=== PATIENT | male | born 1980 | race Caucasian/White ===

== ENCOUNTER 2021-12-20 11:37 | Emergency (ER) | payer OTHER, SELFPAY ==
--- NOTE | ~2021-12-20 | XR_ITS ---
EXAMINATION: XR HAND, LEFT CLINICAL INFORMATION: Injury to fourth digit COMPARISON: None TECHNIQUE: PA, lateral, and oblique views of the left hand. FINDINGS: The bones and soft tissues are normal. No fracture. Alignment is anatomic. Joint spaces are maintained. No erosions or soft tissue calcifications. XR/XR hand LT 2V IMPRESSION: Normal left hand.
[2021-12-20 12:01] VITALS: BP 115/76; PULSE 93; RESP 18; TEMP 37.1; O2SAT 97; BMI 22.4
--- NOTE | 2021-12-20 12:31 | ED_ITS ---
HPI - General Adult General Chief complaint: Extremity Problem Stated complaint: crushed knuckle Time Seen by Provider: 12/20/21 12:30 Source: patient Mode of arrival: ambulatory Limitations: no limitations History of Present Illness HPI narrative: Patient is a 41 year old male presenting to the emergency department today with left ring finger pain after a crush injury. 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 Patient states that he does not remember his last tetanus shot. Patient denies any dizziness, lightheadedness, abdominal pain, nausea, vomiting, fever, chills, blurry vision, double vision, loss of vision, chest pain, difficulty breathing, shortness of breath, back pain, night sweats, pain with urination, increased urinary frequency, increased urinary urgency, blood in his urine or stool, syncope or a near syncopal episode, bowel incontinence, bladder incontinence, bowel retention, bladder retention, or any other complaints at this time. Onset (ago): minute(s) Location: left and upper extremity (ring finger) Radiation: non-radiation Severity: mild Severity scale (1-10): 3 Quality: dull Pain Consistency: constant Relieving factors: none Exacerbating factors: none Associated symptoms: denies other symptoms Treatments prior to arrival: none Related Data Previous Rx's Medication Instructions Recorded cephalexin 500 mg capsule 500 mg PO Q6H 7 days #28 caps 12/20/21 Allergies Allergy/AdvReac Type Severity Reaction Status Date / Time No Known Allergies Allergy Verified 12/20/21 12:30 Review of Systems Constitutional: Constitutional: Reports no additional constitutional complaints, Denies chills, Denies fever(s) and Denies night sweats Eyes: Eyes: Reports no additional eye complaints, Denies blurry vision, Denies change in vision, Denies diplopia, Denies eye discharge, Denies loss of vision and Denies eye pain ENT: Denies dizziness Cardiovascular: Cardiovascular: Reports no additional cardiovascular complaints, Denies chest pain, Denies lightheadedness, Denies Loss of Consciousness and Denies dyspnea Respiratory: Respiratory: Reports no additional respiratory complaints and Denies dyspnea Gastrointestinal: Gastrointestinal: Reports no additional gastrointestinal complaints, Denies abdominal pain, Denies melena, Denies hematochezia, Denies change in bowel habits and Denies change in stool character Genitourinary: Genitourinary: Reports no additional male genitourinary complaints, Denies hematuria, Denies oliguria, Denies difficulty urinating, Denies dysuria, Denies urinary frequency, Denies urinary hesitancy, Denies urinary incontinence and Denies urinary urgency Musculoskeletal: Musculoskeletal: Reports no additional musculoskeletal c omplaints, Denies numbness and Denies tingling Integumentary/Breasts: Comments: avulsion of skin on the left ring finger Neurologic: Denies dizziness, Denies loss of vision, Denies numbness and Denies tingling Psychiatric: Psychiatric: Reports no additional psychiatric complaints Endocrine: Endocrine: Reports no additional endocrine complaints Hematologic/Lymphatic: Hematologic/Lymphatic: Reports no additional hematologic/lymphatic complaints Allergic/Immunologic: Allergic/Immunologic: Reports no additional allergic/immunologic complaints [facility] Past Medical History Attestation statement: The following information was validated with the patient. Source: old records reviewed Social History Social History Advance Directives: No Advance Directives Information Provided: No Physical Exam ED Vital Signs: Vital Signs - 24 hr 12/20/21 12:01 Temperature 98.8 F Pulse Rate 93 Respiratory Rate 18 Blood Pressure 115/76 Pulse Oximetry 97 Oxygen Delivery Method Room Air BMI result Body Mass Index 22.4 Const General: cooperative, no acute distress, alert and awake Nutritional Appearance: well nourished Orientation/consciousness: patient oriented x3 Limitations: no limitations HENMT Head: Yes normal to inspection and Yes atraumatic Ears: hearing grossly normal bilaterally and external ears normal General nose exam: Normal external nose present, no nasal discharge noted and no epistaxis Face and sinus: Yes normal facial exam, No abrasion and No laceration Mouth: Normal oral and palatal mucosa present, no drooling and no muffled voice Eyes General: appearance normal, both eyes and all related structures Periorbital: periorbital findings normal Eyelids: Yes eyelids normal Conjunctivae: conjunctivae normal Pupils: Equal, round and reactive pupils present EOM: EOMs intact bilaterally Neck Neck: Yes normal visual inspection, Yes full ROM and Yes no lymphadenopathy Chest Chest palpation & inspection: normal inspection of the chest Resp Effort & Inspection: normal respiratory effort and able to speak in complete sentences Auscultation: clear to auscultation bilaterally GI Inspection: Yes normal to inspection Skin Other: small area of avulsion skin to the dorsal aspect of the left ring finger, no active bleeding Neuro General: patient oriented x3 and moves all extremities Cranial nerves: Yes Equal, round and reactive pupils present Cognition (Neuro): normal cognition Motor exam (neuro): 5/5 motor strength present throughout Sensory Exam: Normal double simultaneous stimulation for sensation Coordination: [id number] test normal Extrem General: Yes full ROM and Yes capillary refill normal Psych Appearance: grossly normal Mental Status: mental status grossly normal Affect: normal affect Attitude: cooperative Thought process: Normal thought process present Thought content: Normal thought content present Insight: Good insight present (Psych) Medical Decision Making MDM Narrative Medical decision making narrative: Patient is a 41 year old male presenting to the emergency department today with a left ring finger injury. Patient's physical exam showed a small skin avulsion to the dorsal aspect of the left ring finger with no active bleeding.Patient's left hand x-ray showed no acute process. I explained my physical exam findings as well as all test results to the patient. I answered all questions asked by the patient. Patient was brought up to date on tetanus. I stressed the importance of the patient taking his medication as prescribed. I stressed the importance of the patient following up with his primary care provider. I stressed the importance of the patient returning to the emergency department immediately if his symptoms were to worsen or if he were to develop any dizziness, shortness of breath, difficulty breathing, chest pain, blurry vision, loss of vision, nausea, vomiting, abdominal pain, fever, chills, back pain, or any other complaints. Patient verbalized agreement and understanding with this treatment plan and discharge. Differential Diagnosis Differential Diagnosis: skin avulsion, crush injury Medical Records Medical records reviewed: Yes I reviewed the patient's medical records. Imaging Data Left hand x-ray: Attestation: I personally reviewed and interpreted this imaging study as follows: My impression: No acute process. Radiologist's impression: EXAMINATION: XR HAND, LEFT CLINICAL INFORMATION: Injury to fourth digit? COMPARISON: None? TECHNIQUE: PA, lateral, and oblique views of the left hand. FINDINGS: The bones and soft tissues are normal. No fracture. Alignment is anatomic. Joint spaces are maintained. No erosions or soft tissue calcifications.? XR/XR hand LT 2V IMPRESSION: Normal left hand. Dictated By: Antonio Merlos MD Signed By: Electronically signed by Antonio Merlos MD DD/ [id number] Discharge Plan Discharge Clinical Impression: Crush injury Patient Disposition: Home, Self-Care Instructions: Crush Injury (ED) Additional Instructions: Follow up with your primary care provider. Return to the emergency department immediately if your symptoms worsen or if you develop any dizziness, shortness of breath, difficulty breathing, chest pain, blurry vision, loss of vision, nausea, vomiting, abdominal pain, fever, chills, back pain, or any other complaints. Prescriptions: New cephalexin 500 mg capsule 500 mg PO Q6H 7 Days Qty: 28 0RF Referrals: [facility] [place] Group] (Call to establish and follow up with a primary care provider. If you have a primary care provider, please call and follow up with their office.) [facility] [place] [Provider Group] (Call to establish and follow up with a primary care provider. If you have a primary care provider, please call and follow up with their office.) [facility] [Provider Group] (Call to establish and follow up with a primary care provider. If you have a primary care provider, please call and follow up with their office.) Stand Alone Forms: Work/School Release Interventions: ED Discharge Assessment Last Done: 12/20/21 13:37 Discharge Date/Time: 12/20/21 13:38 Print Language: Bulgarian
[2021-12-20] MEDS: Diphth,Pertus(ACell),Tet Adult 0.5 ML SYRINGE IM (13:35)
== END 2021-12-20 13:38 | disposition home or self-care (01) ==
PROVIDERS: Emergency Provider Student in an Organized Health Care Education/Training Program
DX: S67.195A Crushing injury of left ring finger, initial encounter (principal); S61.205A Unspecified open wound of left ring finger without damage to nail, initial encounter; W23.0XXA Caught, crushed, jammed, or pinched between moving objects, initial encounter; Y93.89 Activity, other specified; Y92.9 Unspecified place or not applicable; Y99.0 Civilian activity done for income or pay
CPT/HCPCS: 73120; 90471; 90715; 99282; 99284

== ENCOUNTER 2022-09-16 09:54 | Outpatient (REF) | payer OTHER, SELFPAY ==
--- NOTE | ~2022-09-16 | XR_ITS ---
EXAMINATION: XR TIBIA AND FIBULA, LEFT CLINICAL INFORMATION: Pain status post fall. COMPARISON: None available. TECHNIQUE: AP and lateral views of the left tibia and fibula were obtained. FINDINGS: There is an acute, nondisplaced spiral type oblique fracture of the proximal fibular metadiaphysis. The tibia appears intact. The left knee joint space is unremarkable. The soft tissues are unremarkable. XR/XR tibia fibula LT 2V IMPRESSION: Acute spiral type fracture of the proximal left fibular metadiaphysis.
--- NOTE | ~2022-09-16 | XR_ITS ---
EXAMINATION: XR ANKLE, LEFT CLINICAL INFORMATION: Left foot and ankle pain status post fall. COMPARISON: None available. TECHNIQUE: AP, lateral, and mortise views of the left ankle. FINDINGS: The ankle joint and mortise are intact. There is no acute fracture or dislocation. The joint spaces are unremarkable. There is mild soft tissue swelling. XR/XR ankle LT min 3V IMPRESSION: Mild soft tissue swelling without acute fracture.
== END 2022-09-16 09:55 | disposition home or self-care (01) ==
LOC: HO.HMGCX 09:54
PROVIDERS: Visit Provider Physician Assistant
DX: M89.8X6 Other specified disorders of bone, lower leg (principal); M25.572 Pain in left ankle and joints of left foot
CPT/HCPCS: 73590; 73610

== ENCOUNTER 2022-09-23 14:31 | Outpatient (REF) | payer OTHER, SELFPAY ==
--- NOTE | ~2022-09-23 | XR_ITS ---
EXAMINATION: XR ANKLE, LEFT CLINICAL INFORMATION: Pain. COMPARISON: Radiographs dated 09/16/2022. TECHNIQUE: AP, lateral, and mortise views of the left ankle. FINDINGS: The bones and soft tissues are normal. No fracture. Alignment is anatomic. Joint spaces are maintained. No joint effusion. XR/XR ankle LT min 3V IMPRESSION: Normal left ankle.
== END 2022-09-23 14:32 | disposition home or self-care (01) ==
LOC: HO.HOSX 14:31
PROVIDERS: Visit Provider Physician Assistant
DX: S82.832A Other fracture of upper and lower end of left fibula, initial encounter for closed fracture (principal); S93.402A Sprain of unspecified ligament of left ankle, initial encounter; X58.XXXA Exposure to other specified factors, initial encounter; Y93.9 Activity, unspecified; Y92.9 Unspecified place or not applicable; Y99.9 Unspecified external cause status
CPT/HCPCS: 73610

== ENCOUNTER 2022-10-18 09:20 | Outpatient (REF) | payer OTHER, MEDICAID, SELFPAY ==
--- NOTE | ~2022-10-18 | XR_ITS ---
EXAMINATION: XR TIBIA AND FIBULA, LEFT CLINICAL INFORMATION: Fracture COMPARISON: Previous x-ray August 2022 TECHNIQUE: AP and lateral views of the left tibia and fibula were obtained. FINDINGS: There is an oblique nondisplaced fracture of proximal fibular shaft. There is increasing bony callus formation suggestive of evidence of healing. Alignment unchanged. No other fracture. The knee and ankle joints are normal. Soft tissues are normal. XR/XR tibia fibula LT 2V IMPRESSION: Healing left proximal fibular shaft fracture.
== END 2022-10-18 09:21 | disposition home or self-care (01) ==
LOC: HO.HOSX 09:20
PROVIDERS: Visit Provider Physician Assistant
DX: S82.832A Other fracture of upper and lower end of left fibula, initial encounter for closed fracture (principal); S93.402A Sprain of unspecified ligament of left ankle, initial encounter
CPT/HCPCS: 73590

== ENCOUNTER 2022-11-19 08:02 | Outpatient (REF) | payer OTHER, MEDICAID, SELFPAY ==
--- NOTE | ~2022-11-19 | XR_ITS ---
EXAMINATION: XR TIBIA AND FIBULA, LEFT CLINICAL INFORMATION: Left lower leg pain. COMPARISON: 10/21/2022 and studies dating back to 09/16/2022. TECHNIQUE: AP and lateral views of the left tibia and fibula were obtained. FINDINGS: There is no change in alignment of the proximal left fibular fracture with continued increase in periosteal new bone formation. Fracture site is still evident. There is question of a vertical lucency in the region of the posterior malleolus. This may represent a vascular channel or prominent trabeculation however, a nondisplaced fracture cannot be excluded on this image and clinical correlation to pain about the posterior ankle is recommended. XR/XR tibia fibula LT 2V IMPRESSION: No change in alignment of healing spiral fracture of the proximal left fibula. Vertical lucency in the region of the posterior malleolus as described and could possibly be related to a nondisplaced posterior malleolar fracture. Clinical correlation suggested. This critical result was discussed with Dr. Maddison Ruggiero at 1:00 PM on 12/05/2022 and it was ascertained that the content and urgency of the report was understood at the time of direct communication.
== END 2022-11-19 08:03 | disposition home or self-care (01) ==
LOC: HO.HOSX 08:02
PROVIDERS: Visit Provider Physician Assistant
DX: S82.832D Other fracture of upper and lower end of left fibula, subsequent encounter for closed fracture with routine healing (principal); S93.402D Sprain of unspecified ligament of left ankle, subsequent encounter
CPT/HCPCS: 73590